=== PATIENT | female | born 1950 | race Caucasian/White ===

== ENCOUNTER 2016-10-07 13:14 | Emergency (ER) | payer MEDICAID, OTHER ==
--- NOTE | 2016-10-07 14:16 | Emergency Department Record ---
History of Present Illness - General Chief Complaint: Back Pain/Injury Stated Complaint: BACK PAIN/FALL Time Seen by Provider: 10/07/16 14:14 Source: Patient, Family Mode of Arrival: Ambulatory Limitations: No limitations - History of Present Illness Initial Comments: 66 yo female presents after a fall about 2 hours ago. She has a knee with degenerative arthritis. With movement she sometimes looses balance. She fell in the kitchen and landed on her left hip and low back. She is able to weight bear but with some pain. No numbness or tingling. She does not have any other pain or injury. MD Complaint: Back pain, Back injury, Fall Onset/Timin -: Minutes(s) Place: Home Radiation: None Consistency: Constant Improves With: Immobilization Worsens With: Movement, Walking Context: Fall Associated Symptoms: Denies other symptoms - Related Data Home Medications Medication Instructions Recorded Confirmed Last Taken Amlodipine Besylate [Norvasc] 5 mg PO DAILY 05/10/15 10/07/16 10/07/16 Atenolol/Chlorthalidone 1 each PO DAILY 05/10/15 10/07/16 10/07/16 [Atenolol-Chlorthalidone 50-25] Lisinopril 10 mg PO DAILY 05/10/15 10/07/16 10/07/16 Allergies Allergy/AdvReac Type Severity Reaction Status Date / Time No Known Drug Allergies Allergy Verified 05/10/15 07:08 Travel Screening - Travel/Exposure Within Last 30 Days Have you traveled within the last 30 days?: No - Travel/Exposure Within Last Year Have you traveled outside the [place] in the last year?: No - Additonal Travel Details Have you been exposed to anyone with a communicable illness?: No - Travel Symptoms Symptom Screening: None Review of Systems Constitutional: Denies: Chills, Fever, Malaise, Weakness Eyes: Denies: Eye discharge ENT: Denies: Congestion, Throat pain Respiratory: Denies: Cough, Dyspnea Cardiovascular: Denies: Chest pain, Palpitations, Syncope Endocrine: Denies: Fatigue Gastrointestinal: Denies: Abdominal pain, Diarrhea, Nausea, Vomiting Genitourinary: Denies: Dysuria, Urgency Musculoskeletal: Reports: Arthralgia, Back pain, Myalgia. Denies: Joint swelling, Neck pain Skin: Denies: Bruising, Change in color, Rash Neurological: Denies: Headache, Numbness, Weakness Psychiatric: Denies: Anxiety Hematological/Lymphatic: Denies: Blood Clots, Easy bleeding, Easy bruising, Swollen glands Past Medical History - SOCIAL HISTORY Smoking Status: Former smoker Alcohol Use: Occassional Drug Use: None - RESPIRATORY Hx Respiratory Disorders: No - CARDIOVASCULAR Hx Cardio Disorders: Yes Hx Hypertension: Yes - NEURO Hx Neuro Disorders: Yes Hx CVA: Yes (2006) - GI Hx GI Disorders: No - Hx Genitourinary Disorders: No - ENDOCRINE Hx Endocrine Disorders: No - MUSCULOSKELETAL Hx Musculoskeletal Disorders: Yes Comment:: bad knee - PSYCH Hx Psych Problems: No - HEMATOLOGY/ONCOLOGY Hx Hematology/Oncology Disorders: No Family Medical History Any Significant Family History?: No Physical Exam - General General Appearance: Alert, Oriented x3, Cooperative, No acute distress Limitations: No limitations - Head Head exam: Atraumatic, Normocephalic, Normal inspection Head exam detail: negative: Abrasion, Contusion, Hematoma, Laceration - Eye Eye exam: Normal appearance, PERRL. negative: Conjunctival injection, Periorbital swelling - ENT ENT exam: Normal exam Ear exam: Normal external inspection Nasal Exam: Normal inspection Mouth exam: Normal external inspection Teeth exam: Normal inspection Throat exam: Normal inspection - Neck Neck exam: Normal inspection. negative: Tenderness - Respiratory Respiratory exam: Normal lung sounds bilaterally. negative: Respiratory distress - Cardiovascular Cardiovascular Exam: Regular rate, Normal rhythm, Normal heart sounds Peripheral Pulses: 2+: Radial (R), Radial (L) - GI/Abdominal GI/Abdominal exam: Soft. negative: Tenderness - Rectal Rectal exam: Deferred - exam: Deferred - Extremities Extremities exam: Normal inspection, Full ROM, Joint swelling, Normal capillary refill, Tenderness. negative: Calf tenderness, Pedal edema Image of Full Body: 1 - tender lateral hip and low lumbar, full ROM, no deformity, no bleeding or bruising - Back Back exam: Reports: Normal inspection, Full ROM, Paraspinal tenderness (low lumbar), Tenderness, Vertebral tenderness. Denies: Muscle spasm - Neurological Neurological exam: Alert, Normal gait, Oriented X3 - Psychiatric Psychiatric exam: Normal affect, Normal mood. negative: Agitated, Anxious - Skin Skin exam: Dry, Intact, Normal color, Warm. negative: Abrasion, Cyanosis, Diaphoretic, Erythema, Mottled Course Vital Signs 10/07/16 13:42 Temperature 97.7 F Pulse Rate 101 H Respiratory 18 Rate Blood Pressure 151/90 Pulse Ox 100 - Reevaluation(s) Reevaluation #1: The XR's of the left hip were negative The lumbar XR was subtle or equivocal for L2 endplate compression fracture without any loss of height. This was discussed with the patient She has an appointment this week with her doctor We discussed close follow up and reasons to return. 10/07/16 16:04 Disposition Disposition: Discharge Clinical Impression: Lumbar compression fracture Qualifiers: Encounter type: initial encounter Fracture type: closed Qualified Code(s): S32.000A - Wedge compression fracture of unspecified lumbar vertebra, initial encounter for closed fracture Disposition: Home, Self-Care Condition: (1) Good Instructions: Vertebral Compression Fracture (ED) Additional Instructions: Follow up this week with your doctor regarding this ER visit and the results Return if you pain increases or any other symptoms If the pain increases you will need further outpatient work up of the subtle, equivocal L2 lumbar fracture. Forms: Patient Portal Access Time of Disposition: 16:16
[2016-10-07] MEDS ORDERED: IBUPROFEN 200 MG TABLET PO PRN (14:20)
== END 2016-10-07 16:29 | disposition home or self-care (01) ==
LOC: ER 13:14
DX: S32.020A Wedge compression fracture of second lumbar vertebra, initial encounter for closed fracture (principal); M25.552 Pain in left hip; M25.551 Pain in right hip; W01.0XXA Fall on same level from slipping, tripping and stumbling without subsequent striking against object, initial encounter; Y92.000 Kitchen of unspecified non-institutional (private) residence as the place of occurrence of the external cause
CPT/HCPCS: 72100; 99283; 99284

== ENCOUNTER 2017-07-30 07:29 | Inpatient (IN) | payer MEDICARE ==
[~2017-07-30 07:29] MED LIST: CEFAZOLIN 2 Gram 2 GM/50 ML BAG IVPB ONE; FAMOTIDINE 20MG TABLET PO ONE; MECLIZINE 25 MG TABLET PO ONE; METOCLOPRAMIDE 10 MG TABLET PO ONE
[2017-07-30] MEDS ORDERED: AL HYDROX/MAG HYDROX 30ML UD PO PRN (11:00)
[2017-07-30] MEDS ORDERED: TRAMADOL HCL 50 MG TABLET PO PRN ×2 (11:00)
[2017-07-30] MEDS ORDERED: ONDANSETRON HCL IV 4 MG/2 ML VIAL IVP PRN (11:00)
[2017-07-30] MEDS ORDERED: MAGNESIUM HYDROXIDE 30 ML UDC PO PRN (11:00)
[2017-07-30] MEDS ORDERED: ZOLPIDEM TARTRATE 5 MG TABLET PO PRN (11:00)
[2017-07-30] MEDS ORDERED: DIPHENHYDRAMINE HCL 25 MG CAPSULE PO PRN (11:00)
[2017-07-30] MEDS ORDERED: METOCLOPRAMIDE HCL 10 MG/2 ML VIAL IVP PRN (11:00)
[2017-07-30] MEDS ORDERED: SENNOSIDES/DOCUSATE SODIUM UD CAPSULE PO PRN (11:00)
[2017-07-30] MEDS ORDERED: HYDROMORPHONE HCL 2 MG/ML VIAL IV PRN (11:00)
[2017-07-30] MEDS ORDERED: OXYCODONE HCL/APAP 5MG/325MG TABLET PO PRN ×2 (11:01)
[2017-07-30] MEDS ORDERED: HYDROCODONE/APAP 5/325MG TABLET PO PRN (11:01)
[2017-07-30] MEDS ORDERED: OXYCODONE HCL 5 MG TABLET PO PRN ×2 (11:01)
[2017-07-30] MEDS: RINGERS SOLUTION,LACTATED 1,000 ML IV SCH (11:37)
[2017-07-30] MEDS ORDERED: TRANEXAMIC ACID 1,000 MG in 0.9 % SODIUM CHLORIDE 100ML 100 ML IVPB ONE (13:00)
[2017-07-30] MEDS ORDERED: ALPRAZOLAM 0.25 MG TABLET PO ONE (13:04)
--- NOTE | 2017-07-30 13:20 | Operative Note ---
DATE OF SURGERY: 07/30/2017 Surgeon: Miah Green DO Referring physician: Shahana Foley DO PREOPERATIVE DIAGNOSIS: Primary osteoarthritis of the right knee. POSTOPERATIVE DIAGNOSIS: Primary osteoarthritis of the right knee. OPERATION: Right total knee arthroplasty. Anesthesia: Spinal. PROCEDURE: This 67-year-old female was taken to the operating room and placed in the supine position on the operating room table. Spinal anesthesia was induced by the Department of Anesthesia. The right lower extremity was elevated and prepped with Hibiclens and draped in the usual sterile fashion. It was exsanguinated and the tourniquet inflated to 300 mmHg. All scrubbed personnel wore personal isolation suits. An anterior longitudinal midline incision was made, followed by a medial parapatellar arthrotomy incision. An intracondylar drill hole was made for the intramedullary alignment fely and the 5 degree valgus 9 mm cut was made in the distal femur and the wafer of bone removed. A sizing jig was affixed and a size 62 was seen to be the appropriate size in the anterior posterior dimension, but too wide in the medial lateral direction, therefore, the pin sites were moved 2 mm anteriorly and the 4-in-1 cutting block was then pinned in 3 degrees of external rotation, and a size 60 cutting block was used, cutting an additional 2 mm off the posterior condyles. The wafers of bone were removed. We then directed our attention to the proximal tibia. An extramedullary alignment guide was used to cut the proximal tibia. After positioning the guide in the appropriate position, a 3 degree posterior slope cut was made, after we referenced a 10 mm cut off the lateral tibial plateau. The wafer of bone was removed and the remnants of the menisci and osteophytes were removed from the posterior aspect of the joint. The tibia was sized to a size 67, the stem punch was used. The joint was copiously irrigated to remove all debris from the joint. The trial components were inserted and a size 13 mm bearing was seen to be the appropriate size, which gave us excellent stability throughout range of motion. The patella was then cut and restored to anatomic height with a 34 x 7.8 mm patella. All trial components were then removed. Exparel was injected into the posterior medial and lateral corners of the joint. The joint was again copiously irrigated with pulse lavage lactated Ringer's solution. The bony surfaces were dried and all components were cemented into place and excess cement removed after the insertion of each component. Initially, the size 67 tibia was cemented, followed by the insertion of the tibial bearing, femoral component, and finally the patella. Once the cement had hardened and all excess cement removed, the wound was further infiltrated with the remainder of the Exparel, injected into the capsule and the periosteum of the proximal tibia and distal femur. A drain was then placed through a separate stab incision and the arthrotomy incision was closed with a 2 Vicryl, the subcutaneous tissue closed with 0 Vicryl. The skin was stapled. Sterile dressings with a Polar Care applied and the patient taken to the recovery room in satisfactory condition. GROSS PATHOLOGY: This patient had a very severe medial compartment osteoarthritis full-thickness articular cartilage loss being identified. The final components inserted were: A [employer] Vanguard size 60 cruciate retaining femoral component, a 67 tibial base plate, a 13 mm anterior stabilized E1 bearing, and a 34 x 7.8 mm patella was used. LEATHA
[2017-07-30] MEDS ORDERED: TRANEXAMIC ACID 1,000 MG/10 ML ML IV ONE (13:47)
[2017-07-30] MEDS ORDERED: BUPIVACAINE 0.25% W/EPI MPF 30ML VIAL IVP ONE (13:47)
[2017-07-30] MEDS ORDERED: BUPIVACAINE LIPOSOME 266MG/20ML VIAL IV ONE (13:47)
--- NOTE | 2017-07-30 13:56 | Rehab Evaluation ---
Patient Information - Patient Information Diagnosis: OA right Ordered Treatment: PT Evaluate and Treat Status: Initial Evaluation Surgery: Yes (TKA right knee) Date of Surgery: 07/30/17 Past Medical/Surgical Hx: PAST MEDICAL/SURGICAL HISTORY Past Surgical History csection hyestectomy PMH - Respiratory Hx Respiratory Disorders No PMH - Cardiovascular Hx Cardiovascular Disorders Yes Hx Edema Yes: occassional feet. 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 from blood trans 28 yrs ago PMH - Hx Genitourinary Disorders No Comment: uterine rupture with PMH - Endocrine Hx Endocrine Disorders No PMH - Musculoskeletal Hx Musculoskeletal Disorders Yes Hx Arthritis Yes Comment: bad knee PMH - Psych Hx Psychiatric Problems No Hx Anxiety Yes Hx Depression Yes Comment: hx PTSD after . PMH - Hematology/Oncology Hx Hematology/Oncology No Disorders Hx Blood Transfusion Reaction No Social History: Detail (Lives alone in single story house with one step into house, rail and handle on each side of step. Family available to help her first couple of weeks. Scheduled for OP PT Thursday after surgery. Has four-wheeled walker to use at home and single point cane on steps. Bathroom has shower chair and standard tub. Not sure about hand holds or toilet seat.) Precautions: [place] - Time With Patient Total Time Spent With Patient (Min): 30 Treatment Procedures: Detail (Patient seen bedside, still has BP cuff and oximeter, IV, CPM, cryocuff and compressive stockings in place. Patient willing to try to get out of bed and feeling good so unhooked all devices and worked on exercises first: quad, glut and ham sets, heel slides, SLR and ankle pumps. Patient able to do all exercises without pain at this time. Supine to sit without difficulty and independently, slid to edge of bed and let leg down, sit to stand independently with FWW in front of her then stood weightshifting for a minute then got back into bed independently. Used trapeze to pull up into bed and able to SLR leg into CPM, re-attached cryocuff, stabilization pads on CPM, compressive stockings and call light, tray table close. Let patient know when PT and OT seeing her tomorrow.) Subjective Information - Subjective Information Per Patient (As above under social history. No pain right now and willing to get up and move but did not want to try to walk to bathroom yet.) Objective Data - Pain Pain Present: No - Mental Status Patient Orientation: Oriented x3 - Visual Perception Appears within normal limits for therapeutic activities - ROM Within normal limits (except right knee 60 degrees flexion and full extension.) - Strength/Tone Within normal limits (except quads about 3-/5 and hamstrings 4/5.) - Coordination Appears within normal limits for therapeutic activities - Bed Mobility Independent (except needs help with all attachments and CPM.) - Transfers Independent - Balance Balance Sitting: Good Balance Standing: Good - Sensation Intact - Gait Detail (Just stood today at bedside. Will assess gait tomorrow.) Therapy Assessment - Therapy Assessment Detail (Patient doing extremely well today so hopefully will do well with rehab tomorrow.) Patient Education - Patient Education Teaching Topic: Equipment Use, Exercise/Activity Teaching Method: Demonstration Teaching Recipient: Patient Barriers To Learning: None Problem List - Problem List Physical Therapy Problem List: Detail (1. Gait not assessed yet at [facility]. 2. Stairs not assessed yet at [facility].) Goals - Goals Physical Therapy Goals: 1. Patient will be able to ambulate with proper assistive device community/ household distances safely. 2. Patient will be able to ambulate on step to get into house with appropriate assistance safely. 3. Independent with mobility and transfers, exercises beginning until starts OP therapy. Prognosis - Prognosis Good (Patient doing very well day of surgery with no pain, good vitals and good mobility.) Plan - Plan Physical Therapy Plan: Continue PT day after surgery BID if needed to meet goals to go home safely with family. If needs to stay additional night in hospital will assess need for PT.
[2017-07-30] MEDS ORDERED: MIDAZOLAM HCL 2MG/2ML VIAL IV ONE (14:00)
[2017-07-30] MEDS ORDERED: LIDOCAINE 2% MDV (20MG/ML) 20ML VIAL IV ONE (14:00)
[2017-07-30] MEDS ORDERED: ONDANSETRON HCL IV 4 MG/2 ML VIAL IVP ONE ×2 (14:00→15:00)
[2017-07-30] MEDS ORDERED: HYDROMORPHONE HCL 2 MG/ML VIAL IV ONE (14:00)
[2017-07-30] MEDS ORDERED: DIPHENHYDRAMINE HCL IV 50 MG/ML VIAL IVP ONE (14:00)
[2017-07-30] MEDS ORDERED: PROPOFOL 10 MG/ML VIAL IV ONE (14:00)
[2017-07-30] MEDS ORDERED: FENTANYL PF 100MCG/2ML VIAL IV ONE (14:00)
[2017-07-30] MEDS ORDERED: EPHEDRINE SULFATE 50 MG/ML ML IV ONE (14:00)
[2017-07-30] MEDS: CEFAZOLIN 2 Gram 2 GM/50 ML BAG IVPB SCH (16:26)
[2017-07-30] MEDS: ASPIRIN 325 MG TAB ENTERIC-COATED PO SCH (21:46)
[2017-07-30] MEDS: HYDROCODONE/APAP 5/325MG TABLET PO PRN (22:10)
[2017-07-31] MEDS: CEFAZOLIN 2 Gram 2 GM/50 ML BAG IVPB SCH ×2 (00:42→09:34)
[2017-07-31] MEDS: HYDROCODONE/APAP 5/325MG TABLET PO PRN ×3 (04:11→14:45)
[2017-07-31] MEDS: RINGERS SOLUTION,LACTATED 1,000 ML IV SCH (04:12)
[2017-07-31] MEDS: CHLORTHALIDONE PO SCH ×2 (09:38→12:23)
[2017-07-31] MEDS: ATENOLOL PO SCH ×2 (09:38→12:23)
[2017-07-31] MEDS: ASPIRIN 325 MG TAB ENTERIC-COATED PO SCH ×2 (09:38→12:22)
[2017-07-31] MEDS ORDERED: HARVONI PO SCH (10:00)
[2017-07-31] MEDS ORDERED: PATIENT OWN MED: AMLODIPINE 10 MG PO SCH (10:00)
[2017-07-31] MEDS ORDERED: PATIENT OWN MED: LISINOPRIL 20 MG PO SCH (10:00)
[2017-07-31] MEDS ORDERED: ACETAMINOPHEN 325 MG TAB PO PRN (11:00)
--- NOTE | 2017-07-31 11:04 | Rehab Evaluation ---
Patient Information - Patient Information Diagnosis: OA right Ordered Treatment: OT Evaluate and Treat Status: Initial Evaluation Surgery: Yes (TKA right knee) Date of Surgery: 07/30/17 Past Medical/Surgical Hx: PAST MEDICAL/SURGICAL HISTORY Past Surgical History csection hyestectomy PMH - Respiratory Hx Respiratory Disorders No PMH - Cardiovascular Hx Cardiovascular Disorders Yes Hx Edema Yes: occassional feet. 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 from blood trans 28 yrs ago PMH - Hx Genitourinary Disorders No Comment: uterine rupture with PMH - Endocrine Hx Endocrine Disorders No PMH - Musculoskeletal Hx Musculoskeletal Disorders Yes Hx Arthritis Yes Comment: bad knee PMH - Psych Hx Psychiatric Problems No Hx Anxiety Yes Hx Depression Yes Comment: hx PTSD after . PMH - Hematology/Oncology Hx Hematology/Oncology No Disorders Hx Blood Transfusion Reaction No Social History: Detail (Lives alone in single story house with one step into house, rail and handle on each side of step. Family available to help her first couple of weeks. Scheduled for OP PT Thursday after surgery. Has four-wheeled walker to use at home and single point cane on steps. Bathroom has shower chair and standard tub. Pt has hand held shower head.) Precautions: [place] - Time With Patient Total Time Spent With Patient (Min): 20 Treatment Procedures: Detail (OT eval LOW) Subjective Information - Subjective Information Per Patient (Pt does verbalize some hesitation about returning home today secondary to being alone and not wanting to call sisters for help even though they are willing to come.) Objective Data - Pain Pain Present: Yes Pain Intensity: 6 (R knee) Pain Scale Used: Numeric (1 - 10) - Mental Status Patient Orientation: Oriented x3 - Visual Perception Appears within normal limits for therapeutic activities - ROM Within normal limits (BUE's) - Strength/Tone Within normal limits (BUE's) - Coordination Appears within normal limits for therapeutic activities - Sensation Intact - ADL's/IADL's Detail (Pt was educated and demo'd understanding of modified drsg techniques. She states she has been practicing how to don/doff slip on shoes, get in and out of shower, and has reorganized her kitchen to make the transition home after surgery as easy as possible. Pt independent w/ don pants LS in bed with head of bed elevated. Pt did not use support from elevated head of bed during pants don. She prefers to don/doff pants in bed. Discussed wrapping of R knee to prevent water from getting on incision because pt would like to be able to shower. Pt verbalized understanding.) Therapy Assessment - Therapy Assessment Detail (Pt safe and independent w/ modified drsg techniques to don pants. She will be wearing slip on shoes and is independent w/ shoe don. Pt understands importance of preventing water saturation on incision during showering and is able to verbalize wrapping technique to prevent this. No further inpatient OT needed.) Problem List - Problem List Physical Therapy Problem List: Detail (1. Gait not assessed yet at [facility]. 2. Stairs not assessed yet at [facility].) Goals - Goals Physical Therapy Goals: 1. Patient will be able to ambulate with proper assistive device community/ household distances safely. 2. Patient will be able to ambulate on step to get into house with appropriate assistance safely. 3. Independent with mobility and transfers, exercises beginning until starts OP therapy. Prognosis - Prognosis Good Plan - Plan Physical Therapy Plan: Continue PT day after surgery BID if needed to meet goals to go home safely with family. If needs to stay additional night in hospital will assess need for PT. Occupational Therapy Plan: No further inpatient OT needed at this time. Pt to be d/c'd from OT.
--- NOTE | 2017-07-31 11:54 | Physical Therapy Tx Note ---
Physical Therapy Tx Note - Treatment Note Tolerated: Good (Patient has quite a lot more pain today and really uncomfortable to put weight on right LE. Able to walk in dueñas about 20 feet then back to chair in room, performed exercises with good tolerance.) Total Time Spent With Patient: 30 Physical Therapy Tx Note: Detail (Patient in bed with CPM working at 80 degrees to 0 degrees and really bothering patient with pain even though had pain meds at 10am. Able to do SLR out of CPM independently after removed pads then able to move supine to sit independently and out of bed independently. Stood with walker and verbal cues to push off from bed rail and patient able to ambulate with FWW and WBAT but puts weight on toes so had to encourge heel down gait pattern. Ambulated with FWW and WBAT about 20 feet into dueñas with assist to push IV pole then back to room and sat up in reclining chair. Performed exercises with verbal cues even SLR and did well with them: heel slides, SLR, quad, glut and ham sets, ankle pumps. Left patient in chair with call light and tray table close.) Physical Therapy Problem List: Detail (1. Gait not assessed yet at [facility]. 2. Stairs not assessed yet at [facility]. Gait assessed day after surgery and patient tends to walk on toes but is able to ambulate with shortened step length. Stairs still not assessed morning after surgery.) Physical Therapy Goals: 1. Patient will be able to ambulate with proper assistive device community/ household distances safely. 2. Patient will be able to ambulate on step to get into house with appropriate assistance safely. 3. Independent with mobility and transfers, exercises beginning until starts OP therapy. Prognosis: Good (Patient has a lot of pain this am but willing to get moving and may want to stay another night. Will talk with nursing and doctor about this.) Physical Therapy Plan: Continue PT day after surgery BID if needed to meet goals to go home safely with family. If needs to stay additional night in hospital will assess need for PT.
--- NOTE | 2017-07-31 14:16 | Physical Therapy Tx Note ---
Physical Therapy Tx Note - Treatment Note Tolerated: Good Total Time Spent With Patient: 20 Physical Therapy Tx Note: Detail (Patient was supine in bed upon [employer] arrival. Patient states right knee sore. Patient transferred supine to sit independently. Patient transferred sit to and from stand independently. Patient ambulated 30 feet with wheeled walker SBA x1. Patient transferred sit to and from stand independently. Patient ascended and descended 3 steps CGA x1. Patient ambulated 20 feet with wheeled walker SBA x1. Patient transferred sit to and from stand independently. Patient tolerated treatment well. Patient has passed all inpatient physical therapy goals. Patient is dicharged from inpatient physical therapy at this time.) Physical Therapy Problem List: Detail (1. Gait not assessed yet at eval. 2. Stairs not assessed yet at [facility]. Gait assessed day after surgery and patient tends to walk on toes but is able to ambulate with shortened step length. Stairs still not assessed morning after surgery.) Physical Therapy Goals: 1. Patient will be able to ambulate with proper assistive device community/ household distances safely. 2. Patient will be able to ambulate on step to get into house with appropriate assistance safely. 3. Independent with mobility and transfers, exercises beginning until starts OP therapy. Prognosis: Good Physical Therapy Plan: Patient has passed all inpatient physical therapy goals. Patient is discharged from inpatient physical therapy at this time.
--- NOTE | 2017-08-03 12:31 | Discharge Summary ---
DATE OF ADMISSION: 07/30/2017 DATE OF DISCHARGE: 07/31/2017 ADMITTING DIAGNOSIS: Osteoarthritis of the right knee. DISCHARGE DIAGNOSIS: Osteoarthritis of the right knee. OPERATIVE PROCEDURE: Elective right total knee arthroplasty. DESCRIPTION: This 67-year-old female was admitted to the hospital for elective total knee arthroplasty and tolerated the operative procedure well. The drain was removed the first postoperative day. She was cleared by Physical Therapy and will be discharged home. She was instructed to wear her CHLOE hose during the day and remove them at night. Take aspirin 325 mg daily. She was given a prescription for [place] 5 mg, #60, 1-2 every 6 hours as necessary for pain. Routine wound care instructions were given. She will have outpatient physical therapy and I will see her in 2 weeks. Should she have any problems prior to being seen, she was instructed to call my office. LEATHA
== END 2017-07-31 16:17 | disposition home or self-care (01) | DRG 470 ==
LOC: MEDSURG 07:29
PROVIDERS: ADMIT Orthopaedic Surgery; ATTEND Orthopaedic Surgery
PROC: 0SRC069 Replacement of Right Knee Joint with Oxidized Zirconium on Polyethylene Synthetic Substitute, Cemented, Open Approach (ICD-10-PCS; principal; 2017-07-30 09:30)
DX: M17.11 Unilateral primary osteoarthritis, right knee (principal); I10 Essential (primary) hypertension; Z86.19 Personal history of other infectious and parasitic diseases
CPT/HCPCS: 94760; 97110; 97116; 97165; 97530; J1200; J2405; J7120

== ENCOUNTER 2018-01-14 07:15 | Day surgery (SDC) | payer MEDICARE ==
[2018-01-14] MEDS ORDERED: CARBACHOL 1.5 ML VIAL OPTH ONE (07:16)
[2018-01-14] MEDS ORDERED: EPINEPHRINE 1 MG/ML AMPUL SQ ONE (07:16)
[2018-01-14] MEDS ORDERED: MIDAZOLAM HCL 2MG/2ML VIAL IV ONE (07:16)
[2018-01-14] MEDS ORDERED: LIDOCAINE 2% MDV (20MG/ML) 20ML VIAL IV ONE (07:16)
[2018-01-14] MEDS ORDERED: NEOMYCIN/POLY./DEXAM OPTH OINT OPTH ONE (07:16)
[2018-01-14] MEDS ORDERED: PROPOFOL 10 MG/ML VIAL IV ONE (07:16)
[2018-01-14] MEDS ORDERED: LIDOCAINE 1% MPF 100MG/10ML STERILE-PAK AMPULE IV ONE (07:16)
[2018-01-14] MEDS ORDERED: CIPROFLOXACIN HCL 0.0015 GM, PHENYLEPHRINE HCL 0.05 GM, KETOROLAC TROMETHAMINE 0.000625 GM MC ONE ×5 (10:45)
--- NOTE | 2018-01-14 22:17 | Operative Note ---
DATE OF PROCEDURE: 01/14/18. PREOPERATIVE DIAGNOSIS: Nuclear sclerotic cataract, right eye. POSTOPERATIVE DIAGNOSIS: Nuclear sclerotic cataract, right eye. OPERATION: Phacoemulsification of cataractous lens with implantation of intraocular lens. LENS IMPLANT USED: Naranjo Model PCB00 + 22.0 diopters. COMPLICATIONS: None. PROCEDURE IN DETAIL: Following a retrobulbar and facial block, the patient was prepped and draped in the usual fashion for eye surgery. A lid speculum was placed in the right eye after which a 2.4 mm tunnel wound was placed at the temporal limbus and dissected into clear cornea. A paracentesis was placed at 2 o'clock hours to the left and right of the initial incision and the chamber deepened with Viscoelastic. The keratome was then used to enter the anterior chamber after which the continuous circular capsulorrhexis was accomplished without difficulty using a bent needle and a Utrata forceps. Hydrodissection and hydrodelineation of the lens was performed after which the nucleus of the lens was removed using the Phaco handpiece in the tniyij-crs-lfnwdbg technique. The residual cortical material was irrigated and aspirated from the eye after which the bag and chamber were re-examined. The bag was re-inflated with Viscoelastic and the intraocular lens injected into the capsular bag where it centered well. The Viscoelastic was then copiously irrigated and aspirated from the eye after which the temporal tunnel wound and paracentesis were hydrated and the wounds were examined. They were noted to be watertight. The lid speculum was removed from the eye and the eye patched and shielded. The patient was transferred to the recovery room in satisfactory condition and given an appointment to be reexamined in the clinic later today or as directed by Dr. Cabral. JOB NUMBER: [id number] [facility]
== END 2018-01-14 10:10 | disposition home or self-care (01) ==
LOC: SUR 07:15
PROVIDERS: ATTEND Ophthalmology
DX: H25.11 Age-related nuclear cataract, right eye (principal); I10 Essential (primary) hypertension
CPT/HCPCS: J0171; J3490

== ENCOUNTER 2018-01-28 07:05 | Day surgery (SDC) | payer MEDICARE ==
[2018-01-28] MEDS ORDERED: TETRACAINE HCL 0.5% 15 ML OPTH BTL OPTH ONE (07:06)
[2018-01-28] MEDS ORDERED: LIDOCAINE 2% MDV (20MG/ML) 20ML VIAL IV ONE (07:06)
[2018-01-28] MEDS ORDERED: PROPOFOL 10 MG/ML VIAL IV ONE (07:06)
[2018-01-28] MEDS ORDERED: FENTANYL PF 100MCG/2ML VIAL IV ONE (07:06)
[2018-01-28] MEDS ORDERED: EPINEPHRINE 1 MG/ML AMPUL SQ ONE (07:06)
[2018-01-28] MEDS ORDERED: CIPROFLOXACIN HCL 0.0015 GM, PHENYLEPHRINE HCL 0.05 GM, KETOROLAC TROMETHAMINE 0.000625 GM MC ONE ×5 (13:00)
--- NOTE | 2018-01-30 13:41 | Operative Note ---
DATE OF PROCEDURE: 01/28/18. PREOPERATIVE DIAGNOSIS: Nuclear sclerotic cataract, left eye. POSTOPERATIVE DIAGNOSIS: Nuclear sclerotic cataract, left eye. OPERATION: Phacoemulsification of cataractous lens with implantation of intraocular lens. LENS IMPLANT USED: Naranjo Model PCB00 + 22.0 diopters. COMPLICATIONS: None. PROCEDURE IN DETAIL: Following a retrobulbar and facial block, the patient was prepped and draped in the usual fashion for eye surgery. A lid speculum was placed in the left eye after which a 2.4 mm tunnel wound was placed at the temporal limbus and dissected into clear cornea. A paracentesis was placed at 2 o'clock hours to the left and right of the initial incision and the chamber deepened with Viscoelastic. The keratome was then used to enter the anterior chamber after which the continuous circular capsulorrhexis was accomplished without difficulty using a bent needle and a Utrata forceps. Hydrodissection and hydrodelineation of the lens was performed after which the nucleus of the lens was removed using the Phaco handpiece in the mgvvel-jdz-[id number] technique. The residual cortical material was irrigated and aspirated from the eye after which the bag and chamber were re-examined. The bag was re-inflated with Viscoelastic and the intraocular lens injected into the capsular bag where it centered well. The Viscoelastic was then copiously irrigated and aspirated from the eye after which the temporal tunnel wound and paracentesis were hydrated and the wounds were examined. They were noted to be watertight. The lid speculum was removed from the eye and the eye patched and shielded. The patient was transferred to the recovery room in satisfactory condition and given an appointment to be reexamined in the clinic later today or as directed by Dr. Cabral. JOB NUMBER: [id number] [facility]
== END 2018-01-28 09:57 | disposition home or self-care (01) ==
LOC: SUR 07:05
PROVIDERS: ATTEND Ophthalmology
DX: H25.12 Age-related nuclear cataract, left eye (principal); I10 Essential (primary) hypertension
CPT/HCPCS: 66984; 00142; J3010; J0171